=== PATIENT | female | born 1975 | race African-American/Black ===

== ENCOUNTER 2023-09-11 19:32 | Emergency (ER) | payer OTHER ==
[~2023-09-11] VITALS: Ht 160 cm; Wt 87.1 kg
[2023-09-11] MEDS ORDERED: LIPITOR40 MG PO (20:02)
[2023-09-11] MEDS ORDERED: KETOROLAC TROMETHAMINE 30 MG VIAL IM ONE (20:30)
[2023-09-11] MEDS ORDERED: TETANUS & DIPHTHERIA TOX,ADULT 0.5 ML VIAL IM ONE (20:30)
== END 2023-09-11 21:51 | disposition home or self-care (01) ==
LOC: ER 19:33
DX: S89.81XA Other specified injuries of right lower leg, initial encounter (principal); V49.88XA Car occupant (driver) (passenger) injured in other specified transport accidents, initial encounter; Y93.89 Activity, other specified; Y92.89 Other specified places as the place of occurrence of the external cause; Y99.8 Other external cause status